=== PATIENT | male | born 1955 | race Two or more races ===

== ENCOUNTER 2023-06-01 11:38 | Emergency (ER) | payer MEDICAID ==
[~2023-06-01] VITALS: Ht 157.5 cm; Wt 53.6 kg
[2023-06-01 11:44] VITALS: TEMP 99.7
[2023-06-01] MEDS ORDERED: aspirin 81mg tab.chew PO ONE (12:10)
[2023-06-01] MEDS ORDERED: nitroGLYCERIN 0.4mg SUBLingual tab SL PRN (12:10)
[2023-06-01] MEDS ORDERED: hydrALAZINE 20mg/ml inj. IV ONE ×2 (12:20→12:30)
[2023-06-01] MEDS ORDERED: nitroGLYCERIN 1gm ointment UD TP ONE (12:20)
[2023-06-01 12:21] LABS: BASOPHILS # (AUTO) 0.1 X10'3 (0-0.2); BASOPHILS % (AUTO) 0.5 % (0-1); EOSINOPHILS # (AUTO) 0.1 X10'3 (0-0.9); EOSINOPHILS % (AUTO) 0.6 % (0-6); HEMATOCRIT 48.5 % (42.0-52.0); HEMOGLOBIN 15.5 g/dl (14.0-17.9); LYMPHOCYTES # (AUTO) 2.1 X10'3 (1.1-4.8); LYMPHOCYTES % (AUTO) 20.8 % (21-51); MEAN CORPUSCULAR HEMOGLOBIN 27.9 PG (27.0-31.0); MEAN CORPUSCULAR VOLUME 87.2 FL (78-98); MEAN PLATELET VOLUME 8.9 FL (7.4-10.4); MONOCYTES # (AUTO) 0.8 X10'3 (0-0.9); MONOCYTES % (AUTO) 7.4 % (2-12); NEUTROPHILS # (AUTO) 7.3 X10'3 (1.8-7.7); NEUTROPHILS % (AUTO) 70.7 % (42-75); PLATELET COUNT 251 X10'3 (140-440); RED BLOOD COUNT 5.57 X10'6 (4.70-6.10); WHITE BLOOD COUNT 10.3 X10'3 (4.5-11.0)
[2023-06-01 12:39] LABS: ALANINE AMINOTRANSFERASE 29 U/L (12-78); ALBUMIN 4.2 G/DL (3.4-5.0); ALKALINE PHOSPHATASE 90 IU/L (46-116); ANION GAP 6 (8-16); BILIRUBIN,TOTAL 0.6 MG/DL (0.1-1.0); BLOOD UREA NITROGEN 16 MG/DL (7-18); CALCIUM 9.6 MG/DL (8.5-10.1); CHLORIDE 100 MMOL/L (99-107); CREATININE 1.23 MG/DL (0.60-1.10); GLUCOSE 103 MG/DL (70-104); SODIUM 134 MMOL/L (135-145); TOTAL CARBON DIOXIDE 27.7 MMOL/L (24-32); TOTAL PROTEIN 8.4 G/DL (6.4-8.2); eCRCL 45 ML/MIN; eGFR 59 ML/MIN
[2023-06-01 12:47] LABS: PRO BRAIN NATRIURETIC PEPTIDE 2335 PG/ML (0-125)
[2023-06-01] MEDS ORDERED: normal saline 1000ml 1,000 ML IV ONE (12:50)
[2023-06-01 13:03] LABS: ASPARTATE AMINO TRANSFERASE 37 U/L (10-37); POTASSIUM 4.3 MMOL/L (3.5-5.1)
[2023-06-01 15:15] VITALS: BP 124/72; PULSE 77; RESP 13; O2SAT 99
[2023-06-01] MEDS ORDERED: BENA5TAB39 PO (15:24)
== END 2023-06-01 18:43 | disposition home or self-care (01) ==
LOC: ER 11:40
DX: I16.0 Hypertensive urgency (principal); R04.0 Epistaxis; R15.9 Full incontinence of feces
CPT/HCPCS: 36415; 70450; 71045; 80053; 83880; 84484; 85025; 93005; 96361; 96374; 99285; J0360; J7030; 96376